=== PATIENT | female | born 1975 | race Caucasian/White ===

== ENCOUNTER 2020-01-29 15:34 | Outpatient (CLI) | payer BC, SELFPAY ==
--- NOTE | ~2020-01-29 | MM_ITS ---
EXAMINATION: MM screening [facility] w [facility] HISTORY: Screening mammogram TECHNIQUE: Craniocaudal and mediolateral oblique 3-D tomosynthesis images were obtained and synthetic 2-D images were generated. CAD analysis was submitted and interpreted. COMPARISON: 12/10/2018, 11/02/2017, 03/24/2016 bilateral digital screening mammogram examinations BREAST PARENCHYMAL COMPOSITION: The breasts are heterogeneously dense, which may obscure small masses . FINDINGS: There is no evidence of suspicious mass, calcification, or architectural distortion to sugg est malignancy in either breast. There has been no suspicious interval change. IMPRESSION: 1. No mammographic evidence of malignancy. 2. Recommend routine screening mammography in one year. BI-RADS Category 1: Negative Reviewed, dictated and finalized at location A.
== END 2020-01-29 15:35 | disposition home or self-care (01) ==
LOC: ANHIMG 15:37
PROVIDERS: PCP Nurse Practitioner Family; Visit Provider Obstetrics & Gynecology
DX: Z12.31 Encounter for screening mammogram for malignant neoplasm of breast (principal)
CPT/HCPCS: 77063; 77067

== ENCOUNTER 2021-02-09 10:05 | Outpatient (CLI) | payer OTHER, SELFPAY ==
--- NOTE | ~2021-02-09 | MM_ITS ---
EXAMINATION: MM screening [facility] BI w angelo HISTORY: Screening mammogram TECHNIQUE: Craniocaudal and mediolateral oblique 3-D tomosynthesis images were obtained and synthetic 2-D images were generated. CAD analysis was submitted and interpreted. COMPARISON: 01/29/2020, 12/10/2018, 11/02/2017 BREAST PARENCHYMAL COMPOSITION: The breasts are heterogeneously dense, which may obscure small masses . FINDINGS: There is no evidence of suspicious mass, calcification, or architectural distortion to sugg est malignancy in either breast. There has been no suspicious interval change. IMPRESSION: 1. No mammographic evidence of malignancy. 2. Recommend routine screening mammography in one year. BI-RADS Category 1: Negative Reviewed, dictated and finalized at location A.
== END 2021-02-09 10:06 | disposition home or self-care (01) ==
PROVIDERS: PCP Nurse Practitioner Family; Visit Provider Obstetrics & Gynecology
DX: Z12.31 Encounter for screening mammogram for malignant neoplasm of breast (principal)
CPT/HCPCS: 77063; 77067

== ENCOUNTER → 2021-04-22 03:49 | Outpatient (CLI) | payer OTHER, SELFPAY ==
[2021-04-25 20:55] LABS: SARS-CoV-2 RNA PCR Negative
== END ==
PROVIDERS: PCP Nurse Practitioner Family; Visit Provider Orthopaedic Surgery
DX: Z01.812 Encounter for preprocedural laboratory examination (principal); Z20.822 Contact with and (suspected) exposure to COVID-19
CPT/HCPCS: C9803; U0003; U0005

== ENCOUNTER 2021-04-25 00:35 | Day surgery (SDC) | payer OTHER, SELFPAY ==
[2021-04-15 14:28] VITALS: BMI 31.4
--- NOTE | 2021-04-15 14:37 | PC.NURSE ---
Addendum entered by Pierre Fairchild RN 04/15/21 15:03: Due to travel to [facility] will require a covid test 04-22-2021 at 9am. Patient notified. Original Note: Report to the Outpatient Waiting Room, entrance under the green pavilion located off [facility], at time __1200_ on date 04-25-2021_. OR Time: ___1400_. - You and your visitor will be asked a series of questions to screen for COVID 19 for your protection. - A mask is required within the hospital. - Only one visitor is allowed at this time. Patient visitors will be guided where to wait when not with patient. Preoperative COVID Testing Requirements: No COVID Test needed if: (proof is required; if not received patient will have Rapid Test prior to entry) - Patient has received COVID Vaccine at least 14 days prior to procedure date or - Patient has positive COVID test result within last 90 days of surgery date. COVID Test needed if above criteria is not met If not COVID vaccinated a COVID test must be conducted within 72 hours of surgery and patient is asked to isolate self from time of testing until procedure. You will go to the [facility] for your COVID testing. The [facility] is located at the corner of [address] [facility]. You will only be called if COVID results are positive and your surgeon may reschedule your elective surgery date. Patients may have clear liquids (water, carbonated beverages, clear teas, apple juice) until 3 hours prior to surgery with a maximum of 20 ounces. - No food from midnight until time of surgery - Infants may have breast milk until 4 hours before surgery, infant formula 6 hours prior to surgery. - Children will be allowed to drink immediately following surgery. If applicable, please bring a bottle or sippy cup to assist with drinking. Juice, water, soda, and popsicles are readily available. For infants on formula, please bring formula the day of surgery. Pacifiers are allowed. Take the following medications with a SIP of water the morning of surgery: __Escitalopram Medications to discontinue per physician Stop all vitamins and supplements Date to take last udoe [id number]__ Please no make-up, nail wolof, hairspray, perfume, deodorant, or body powder the day of surgery. No jewelry (including any body piercings) or valuables the day of surgery, leave them at home. Please take a shower or bath the night before, or the morning of, surgery with an antibacterial soap. Wear comfortable, loose fitting clothing. Children are encouraged to wear pajamas. - Jewelry must be removed prior to entering the operating room. Rings and piercings that are not removed may be cut off. - The hospital will not accept responsibility for valuables. - Please leave all valuables, including medications, at home the day of surgery. If you are going home after surgery, a licensed driver utility worker must drive you home. - NO public transportation without another adult. - We recommend that an adult stay with you for 24 hours following discharge. - We also recommend that you do not drive, make important decision, drink alcoholic beverages, or take any drugs that were not prescribed by your health care provider for at least 24 hours after your discharge time. For Pediatric surgeries, we recommend two adults accompany the child home (only one inside the building at this time). Follow any additional instructions given to you from your surgeon. Telephone instructions given to __Patient_and asked if any additional questions and then verbalized understanding. Patient advised to call surgeon office or pre surgery nurse liaison [phone] if any additional questions.
[2021-04-25] VITALS (9 sets, daily range): BP systolic 106–118; BP diastolic 65–72; PULSE 59–73; RESP 12–18; TEMP 36.4–36.5; O2SAT 92–98
--- NOTE | 2021-04-25 12:10 | WPDANESEPPF ---
Anes - Initial Pre Proc Eval Procedure: Operation Date: 04/25/21 12:30 Proposed Procedures p Left Lateral Epicondyle Debridement - Terence Tubbs MD Date/Time: 04/25/21 12:10 Surgeon: Terence Tubbs MD Pre Op Diagnosis: left lateral epicondylitis Patient Data Age: 46 Gender: F Height: 1.7 m Weight: 91 kg Allergies Allergy/AdvReac Type Severity Reaction Status Date / Time No Known Allergies Allergy Unknown Unknown Uncoded 04/15/21 14:24 Home Medications Medication Instructions Recorded Confirmed Type escitalopram oxalate 10 mg tablet 10 mg PO DAILY tablet 04/28/20 04/19/21 History celecoxib 200 mg capsule 200 mg PO DAILY 09/07/20 04/19/21 History cyclosporine 0.05 % eye drops in a 1 drp EACH EYE Q12H 09/07/20 04/19/21 History dropperette Saccharomyces boulardii 250 mg 250 mg PO BID 11/30/20 04/19/21 History capsule ascorbic acid 100 mg-elderberry 2 tablet PO DAILY 11/30/20 04/19/21 History fruit 50 mg chewable tablet cholecalciferol (vitamin D3) 25 25 mcg PO DAILY 11/30/20 04/19/21 History mcg (1,000 unit) capsule cyanocobalamin (vitamin B-12) 1,000 mcg PO DAILY 11/30/20 04/19/21 History 1,000 mcg capsule estradiol 1 mg tablet 1 mg PO DAILY #90 tablet 03/07/21 04/19/21 Rx progesterone micronized 100 mg 100 mg PO QPM 90 Days #90 cap 03/07/21 04/19/21 Rx capsule aspirin [Aspir-81] 81 mg PO DAILY 04/15/21 04/19/21 History cetirizine [Zyrtec] 10 mg PO DAILY 04/15/21 04/19/21 History Patient hx anesthesia problems: none Family hx anesthesia problems: none Results Review: All pre-operative results and documents have been reviewed as part of the pre-operative evaluation. [facility] Past Medical History Medical History BMI 31.0-31.9,adult Lateral epicondylitis, left elbow Osteoarthritis of left knee Osteoarthritis of right wrist Surgical History Surgical History (Updated 04/25/21 @ 12:10 by Zach Peter MD) H/O colonoscopy H/O prior ablation treatment Family History Family History Grandparent Family history of malignant neoplasm of breast Diabetes mellitus Social History Social History Years smoked: 15 Smoking status: Former smoker Tobacco type: cigarettes Second hand tobacco smoke exposure: No Smoking end date: 10/15/19 Alcohol intake: current Drinks per week: 6 Substance use type: marijuana Other substance usage details: 1/2 a gummy every other week. Spiritual care concerns: No Anes - Eval Final PreProcedure Day of Procedure 04/25/21 12:10 Patient weight: obese Heart: regular rate and rhythm Lungs: clear to auscultation Airway: Mallampati scale class II Neurological: alert and oriented Last oral intake: >/= 8 hours ASA classification: II Emergent: no Anesthetic plan: proceed Anesthesia type and monitoring: general LMA and standard monitoring Results Review: All pre-operative results and documents have been reviewed as part of the pre-operative evaluation. Informed Consent: The patient's anesthetic plan and its attendant risks and benefits were discussed with the patient/family/POA. Questions were solicited and answers provided to the satisfaction of the patient/family/POA.
[2021-04-25] MEDS: ACETAMINOPHEN 500 MG TABLET 1000 MG PO (12:16)
[2021-04-25] MEDS: LACTATED RINGERS 1,000 ML 30 ML IV CONT ×2 (12:20→14:15)
--- NOTE | 2021-04-25 12:20 | WPDHPUPDATE1 ---
History and Physical Update Update Date/Time: 04/25/21 12:20 History and Physical has been reviewed, including an updated exam of the patient. There are NO changes in the patient's condition. Risks, benefits, and alternatives have been discussed and questions answered. Patient agrees to proceed with procedure.
[2021-04-25] MEDS: KETOROLAC 15 MG/ML VIAL (*BKC) IV PUSH (12:23)
[2021-04-25] MEDS: ceFAZolin 2 GM/D5W 50 ML 2 GM/50 ML BAG IVPB (12:49)
[2021-04-25] MEDS: LIDO 1%/EPINEPHRINE 1:100,000 50 ML VIAL 10 ML INFILTRATE (13:24)
[2021-04-25] MEDS: fentaNYL CITRATE INJ (*CRX) 100 MCG/2 ML VIAL 25 MCG IV PUSH ×4 (14:00→14:34)
--- NOTE | 2021-04-25 14:16 | P.OP_ITS ---
Procedure Note - Detailed Date of Procedure 04/25/21 Pre-op Diagnosis left lateral epicondylitis Post-op Diagnosis same Procedure Performed Debridement common extensor origin left lateral epicondyle Surgeon Terence Tubbs MD [employer] Plant Operator Jaqui Recio Anesthesia general Description of Procedure The patient was identified proper side identified. She was taken to the operating room and transferred to the or table placing her supine taking care to pad her torso or extremities. After general anesthetic induction and intubation, a nonsterile tourniquet placed high in the left arm. Left upper extremities prepped and draped in usual sterile fashion. Several cc of 1% lidocaine and epinephrine solution was injected into the subcutaneous tissue in the area of the incision. Extremities exsanguinated tourniquet was inflated to 250 millimeters of mercury. Longitude incision was made over the common extensor origin. Subcutaneous tissue sharply dissected full-thickness down to the forearm fascia which was freed up over the tendinous origin. The tendon was released off the lateral epicondyle and then divided in a T-fashion exposing the degenerative central portion of the. This was gently debrided with the edge of the scalpel as well as a rongeur back to healthier tissue. The wound was irrigated with sterile antibiotic solution. Tendon edges reapproximated in a [id number] fashion with 3-0 Monocryl suture. The deeper layers of the subcu reapproximated with 3-0 Monocryl and skin closed with three 0 V lock and tissue adhesive. Sterile dressing applied. Tourniquet was released. She tolerated the procedure well. There were no known intraoperative complications. Estimated blood loss was negligible. She received perioperative antibiotics. Estimated Blood Loss 1 Drains No Packing No Pathology none sent Complications No immediate complications Condition stable Disposition PACU
[2021-04-25] MEDS: oxyCODONE HCL (*CRX) 5 MG TAB IR PO (15:01)
== END 2021-04-25 15:49 | disposition home or self-care (01) ==
PROVIDERS: PCP Nurse Practitioner Family; Visit Provider Orthopaedic Surgery
PROC: (CPT 24359; principal; 2021-04-25 12:30)
DX: M77.12 Lateral epicondylitis, left elbow (principal); Z87.891 Personal history of nicotine dependence; E66.9 Obesity, unspecified; Z68.33 Body mass index [BMI] 33.0-33.9, adult; F12.90 Cannabis use, unspecified, uncomplicated
CPT/HCPCS: 24359; 87426; A9270; C9803; J0690; J1100; J1885; J2250; J2405; J2704; J3010; J7120; U0003; U0005

== ENCOUNTER 2021-04-25 11:01 | Outpatient (CLI) | payer OTHER, SELFPAY ==
[2021-04-25 11:47] LABS: EDCOVIDSCREEN Negative (Negative)
== END 2021-04-25 11:02 | disposition home or self-care (01) ==
PROVIDERS: PCP Nurse Practitioner Family; Visit Provider Orthopaedic Surgery
DX: Z01.812 Encounter for preprocedural laboratory examination (principal); Z20.822 Contact with and (suspected) exposure to COVID-19
CPT/HCPCS: 87426; C9803

== ENCOUNTER 2022-06-27 15:48 | Outpatient (CLI) | payer OTHER, SELFPAY ==
--- NOTE | 2022-06-27 | ECG_ITS ---
Measurements Intervals [place] Rate: 54 P: 59 VA: 150 QRS: 55 QRSD: 88 T: 20 QT: 435 QTc: 414 Interpretive Statements SINUS BRADYCARDIA NONSPECIFIC ST AND T-WAVE ABNORMALITY ABNORMAL ECG NO PREVIOUS ECG AVAILABLE FOR COMPARISON Electronically Signed On 06-28-2022 13:37:09 LSW by Steve Whitten M.D.
== END 2022-06-27 15:49 | disposition home or self-care (01) ==
LOC: ANHCARD 15:51
PROVIDERS: PCP Nurse Practitioner Family; Visit Provider Obstetrics & Gynecology
DX: E66.9 Obesity, unspecified (principal); R94.31 Abnormal electrocardiogram [ECG] [EKG]
CPT/HCPCS: 93005

== ENCOUNTER 2024-08-07 10:43 | Outpatient (CLI) | payer BC, SELFPAY ==
--- NOTE | ~2024-08-07 | US_ITS ---
Pelvic ultrasound. Clinical History: Endometrium, fibroids Technique: Realtime transabdominal and transvaginal scanning of the pelvis was performed. Color flow Doppler and Doppler spectral analysis were performed. Findings: The uterus is anteverted, and measures 5.4 x 3.4 x 3.7 cm. The endometrial stripe has a th ickness of 3 mm. No focal mass is identified. The right ovary measures 1.6 x 2.2 x 1.7 cm. No significant right ovarian or adnexal mass is seen. The left ovary is not visualized. No significant left ovarian or adnexal mass is seen. There is no evidence of free fluid in the cul de sac. Impression: No significant abnormality seen. Reviewed, dictated and finalized at [facility]. Impression: No significant abnormality seen.
== END 2024-08-07 10:44 | disposition home or self-care (01) ==
PROVIDERS: PCP Obstetrics & Gynecology; Visit Provider Specialist
DX: N92.4 Excessive bleeding in the premenopausal period (principal)
CPT/HCPCS: 76830; 76856